=== PATIENT | male | born 1995 | race Caucasian/White ===

== ENCOUNTER → 2017-08-04 | Outpatient (CLI) | payer OTHER | LOC: M RAD 16:26 | DX: R10.31 Right lower quadrant pain (principal); R10.813 Right lower quadrant abdominal tenderness | CPT/HCPCS: 72192 ==

== ENCOUNTER 2018-07-02 21:27 | Emergency (ER) | payer OTHER ==
[~2018-07-02] VITALS: Ht 177.8 cm; Wt 95.5 kg
[2018-07-02] MEDS ORDERED: BUPR300T34 PO (21:33)
[2018-07-02 21:53] LABS: BASO # 0.1 10^3/uL (0.0-0.2); BASO % 0.6 % (0.0-1.0); EOS # 0.4 10^3/uL (0.0-0.50); EOS % 4.2 % (0.0-3.0); LYMPH # 4.4 10^3/uL (1.5-6.5); LYMPH % 41.6 % (24.0-44.0); MEAN CORPUSCULAR HEMOGLOBIN 29.4 pg (27.0-33.0); MEAN CORPUSCULAR VOLUME 86.2 fl (80.0-96.0); MONO # 0.7 10^3/uL (0.0-0.8); MONO % 6.2 % (0.0-5.0); NEUTROPHILS % 47.1 % (36.0-66.0); PLATELET COUNT, AUTOMATED 248 10^3/uL (150-450); RED BLOOD COUNT 5.45 10^6/uL (4.30-6.10); WHITE BLOOD COUNT 10.6 10^3/uL (4.0-10.0)
[2018-07-02 22:21] LABS: ALBUMIN 3.8 GM/DL (3.2-5.2); ALT/SGPT 31 U/L (12-78); BILIRUBIN,DIRECT < 0.1 MG/DL (0.0-0.2); BILIRUBIN,TOTAL 0.3 MG/DL (0.2-1.0); BLOOD UREA NITROGEN 14 MG/DL (7-18); CALCIUM LEVEL 9.3 MG/DL (8.5-10.1); CARBON DIOXIDE LEVEL 30 MEQ/L (21-32); CHLORIDE LEVEL 104 MEQ/L (98-107); CREATININE FOR GFR 1.21 MG/DL (0.70-1.30); GLOMERULAR FILTRATION RATE > 60.0 (>60); GLUCOSE, FASTING 101 MG/DL (70-100); LIPASE 144 U/L (73-393); POTASSIUM SERUM 4.2 MEQ/L (3.5-5.1); SODIUM LEVEL 143 MEQ/L (136-145); TOTAL PROTEIN 7.8 GM/DL (6.4-8.2)
[2018-07-02] MEDS ORDERED: NS 1,000 ML IV ONE (23:00)
[2018-07-02] MEDS ORDERED: ISOVUE-370 76% 100ML VIAL (Q9967) As Ordered ONE (23:00)
--- NOTE | 2018-07-03 01:08 | REPVR ---
EXAM: CT Abdomen and Pelvis With Contrast EXAM DATE/TIME: 07/02/2018 11:55 PM CLINICAL HISTORY: 22 years old, male; Abdominal pain; Localized; Left lower quadrant (llq); Additional info: Llq pain, diarrhea TECHNIQUE: Imaging protocol: Axial computed tomography images of the abdomen and pelvis with intravenous contrast. Coronal and sagittal reformatted images were created and reviewed. Radiation optimization: All CT scans at this facility use at least one of these dose optimization techniques: automated exposure control; mA and/or kV adjustment per patient size (includes targeted exams where dose is matched to clinical indication); or iterative reconstruction. Contrast material: ISOVUE 370; Contrast volume: 100 ml; Contrast route: IV; COMPARISON: CT Pelvis without contrast 08/04/2017 4:37 PM FINDINGS: Lungs: Mild linear stranding and groundglass at the lung bases, likely due to atelectasis. ABDOMEN: Liver: Unremarkable. Gallbladder and bile ducts: No radiodense gallstones. No biliary ductal dilatation. Pancreas: Unremarkable. Spleen: Unremarkable. Adrenals: Unremarkable. Kidneys and ureters: No mass. No radiodense calculi. No hydronephrosis. Stomach and bowel: No bowel wall thickening. No obstruction. No pneumatosis. Appendix: Normal. PELVIS: Bladder: Unremarkable. Reproductive: Unremarkable. ABDOMEN and PELVIS: Intraperitoneal space: No free fluid. No organized fluid collection. No free air. Bones/joints: No acute osseous abnormality. Soft tissues: Small, fat-containing umbilical hernia. Vasculature: Unremarkable. No aneurysm. Lymph nodes: No pathologically enlarged lymph nodes. IMPRESSION: 1. No CT evidence of acute intra-abdominal or pelvic pathology. 2. Additional findings, as above. Electronically signed by: Jeff Stout On 07/03/2018 01:07:54 AM
[2018-07-03 01:40] VITALS: BP 126/58
== END 2018-07-03 02:04 | disposition home or self-care (01) ==
LOC: M ED 21:27
DX: K42.9 Umbilical hernia without obstruction or gangrene (principal); R19.7 Diarrhea, unspecified
CPT/HCPCS: 36415; 74177; 80048; 80076; 81001; 83690; 85025; 96360; 96361; 99284; Q9967

== ENCOUNTER → 2018-07-03 | Outpatient (REF) | payer OTHER ==
[~2018-07-03] MED LIST: BUPR300T34 PO
== END ==
LOC: M LAB REF 09:26
PROVIDERS: ATTEND Internal Medicine
DX: R19.7 Diarrhea, unspecified (principal)

== ENCOUNTER 2018-08-27 20:16 | Emergency (ER) | payer OTHER ==
[~2018-08-27] VITALS: Ht 182.9 cm; Wt 99.5 kg
[2018-08-27] MEDS ORDERED: BUPR15TA (20:24)
[2018-08-27] MEDS ORDERED: ACET1TAB55 (20:24)
[2018-08-27] MEDS ORDERED: HYDR-3713 (20:24)
[2018-08-27] MEDS ORDERED: KETOROLAC TROMETHAMINE 10 MG TAB PO ONE (23:30)
[2018-08-27 23:51] VITALS: BP 131/79
[2018-08-27] MEDS ORDERED: KETO10TAB PO (23:51)
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
== END 2018-08-27 23:55 | disposition home or self-care (01) ==
LOC: M ED 20:16
DX: S40.012A Contusion of left shoulder, initial encounter (principal); S20.211A Contusion of right front wall of thorax, initial encounter; V29.9XXA Motorcycle rider (driver) (passenger) injured in unspecified traffic accident, initial encounter; Y92.9 Unspecified place or not applicable; Y93.89 Activity, other specified; Y99.9 Unspecified external cause status; Z79.899 Other long term (current) drug therapy

== ENCOUNTER 2019-09-03 19:15 | Emergency (ER) | payer OTHER ==
[~2019-09-03] VITALS: Ht 172.7 cm; Wt 97.7 kg
[~2019-09-03 19:15] MED LIST changes: +ACET1TAB55; +BUPR15TA; -BUPR300T34 PO; +BUPR300T92 PO; +HYDR-3713; +KETO10TAB PO
[2019-09-03] MEDS ORDERED: AMPH1CAP5 (19:22)
[2019-09-03] MEDS ORDERED: VENL75CA47 (19:22)
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
[2019-09-03 22:05] VITALS: BP 123/82
[2019-09-03 22:58] LABS: CHLAMYDIA DNA AMPLIFICATION NEGATIVE (NEGATIVE); GC DNA AMPLIFICATION NEGATIVE (NEGATIVE)
== END 2019-09-03 22:07 | disposition home or self-care (01) ==
LOC: M ED 19:15
DX: N50.9 Disorder of male genital organs, unspecified (principal)

== ENCOUNTER 2019-12-22 15:51 | Emergency (ER) | payer OTHER ==
[~2019-12-22] VITALS: Ht 172.7 cm; Wt 98.4 kg
[~2019-12-22 15:51] MED LIST changes: +AMPH1CAP5; +VENL75CA47
[2019-12-22 15:52] VITALS: BP 137/74
[2019-12-22] MEDS ORDERED: MELA3TAB30 (16:02)
[2019-12-22] MEDS ORDERED: CLOT1CRE56 (16:02)
[2019-12-22] MEDS ORDERED: METH27TA5 (16:02)
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
== END 2019-12-22 19:25 | disposition left against medical advice (07) ==
LOC: M ED 15:51
DX: S90.121A Contusion of right lesser toe(s) without damage to nail, initial encounter (principal); S90.122A Contusion of left lesser toe(s) without damage to nail, initial encounter; X50.3XXA Overexertion from repetitive movements, initial encounter; Y92.410 Unspecified street and highway as the place of occurrence of the external cause; Y93.01 Activity, walking, marching and hiking; Z53.20 Procedure and treatment not carried out because of patient's decision for unspecified reasons

== ENCOUNTER → 2020-03-21 | Outpatient (CLI) | payer OTHER ==
[~2020-03-21] MED LIST changes: +CLOT1CRE56; +MELA3TAB30; +METH27TA5
--- NOTE | 2020-03-25 15:42 | SLEEPCENT ---
NOCTURNAL POLYSOMNOGRAPHY DATE: 03/21/2020 ORDERED BY: YOLANDA Thompson Nocturnal polysomnography was performed for evaluation of sleep physiology in this patient with a history of excessive somnolence and nonrestorative sleep. 7 hours and 38 minutes of data were reviewed. There were 377.5 minutes of sleep identified. Sleep latency was prolonged at 47.5 minutes. REM latency was mildly prolonged at 129 minutes. Sleep architecture once established was good. There were two REM cycles noted. Overall sleep efficiency was 83.5%. The electrocardiogram showed a sinus rhythm with an average heart rate of 82 beats per minute; rate range 60 to 90. EEG showed some mild coarsening in the back background. No focal events were appreciated. There were normal waveforms for wake and sleep stages. There were only 8 obstructive respiratory events identified of 10 seconds in duration or greater for an apnea-hypopnea index within normal limits at 1.3. Snoring was, however, noted throughout the later portions of the study. Arousals from respiratory events occurred 0.6 times per hour, and there were no significant oxygen desaturations below 90%. There was some minor limb activity, but no trains of events were seen. IMPRESSION: Normal nocturnal polysomnography with snoring.
== END ==
LOC: M SLEEP 20:00
PROVIDERS: ATTEND Nurse Practitioner Family
DX: R06.83 Snoring (principal)

== ENCOUNTER 2020-05-06 00:36 | Emergency (ER) | payer OTHER ==
[~2020-05-06] VITALS: Ht 180.3 cm; Wt 102.3 kg
[2020-05-06] MEDS ORDERED: ONDANSETRON 4MG/2ML VIAL IV ONE (00:45)
[2020-05-06 00:51] LABS: HEMATOCRIT 46.7 % (42.0-52.0); HEMOGLOBIN 15.3 g/dl (13.5-17.5); MEAN CORPUSCULAR HEMOGLOBIN 30.2 pg (27.0-33.0); MEAN CORPUSCULAR HGB CONC 32.8 g/dl (32.0-36.5); MEAN CORPUSCULAR VOLUME 92.3 fl (80.0-96.0); PLATELET COUNT, AUTOMATED 304 10^3/uL (150-450); RED BLOOD COUNT 5.06 10^6/uL (4.30-6.10); WHITE BLOOD COUNT 11.7 10^3/uL (4.0-10.0)
[2020-05-06] MEDS ORDERED: ISOVUE-370 76% 100ML VIAL As Ordered ONE (00:54)
[2020-05-06 01:09] LABS: ATYPICAL LYMPH 4 % (0-5); BASOPHILS 2 % (0-1); EOSINOPHILS 3 % (0-3); LYMPHOCYTES 47 % (16-44); MONOCYTES 3 % (0-5); NEUTROPHILS 41 % (28-66); PLATELET ESTIMATE NORMAL (NORMAL)
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
[2020-05-06 01:28] LABS: ALT/SGPT 44 U/L (12-78); AMYLASE 94 U/L (25-115); BILIRUBIN,DIRECT < 0.1 MG/DL (0.0-0.2); BILIRUBIN,TOTAL 0.3 MG/DL (0.2-1.0); BLOOD UREA NITROGEN 9 MG/DL (7-18); CALCIUM LEVEL 9.7 MG/DL (8.5-10.1); CARBON DIOXIDE LEVEL 28 MEQ/L (21-32); CHLORIDE LEVEL 109 MEQ/L (98-107); CK-MB VALUE MASS 2.2 NG/ML (<3.6); CPK CREATINE PHOSPHOKINASE 351 U/L (39-308); CREATININE FOR GFR 0.84 MG/DL (0.70-1.30); ETHYL ALCOHOL (ETHANOL) 0.242 % (0.000-0.010); GLOMERULAR FILTRATION RATE > 60.0 (>60); GLUCOSE, FASTING 107 MG/DL (70-100); LIPASE 113 U/L (73-393); MB/CK RELATIVE INDEX 0.63 (< OR =4); POTASSIUM SERUM 3.8 MEQ/L (3.5-5.1); SODIUM LEVEL 144 MEQ/L (136-145); TOTAL PROTEIN 7.9 GM/DL (6.4-8.2); TROPONIN I < 0.02 NG/ML (< 0.10)
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
[2020-05-06 03:00] VITALS: BP 128/73
[2020-05-06 03:25] LABS: AMPHETAMINES LEVEL URINE POSITIVE (NEGATIVE); BARBITURATES URINE NEGATIVE (NEGATIVE); BENZODIAZEPINES URINE NEGATIVE (NEGATIVE); CANNABINOIDS URINE NEGATIVE (NEGATIVE); COCAINE METABOLITE URINE NEGATIVE (NEGATIVE); METHADONE URINE NEGATIVE (NEGATIVE); OPIATES URINE NEGATIVE (NEGATIVE); PHENCYCLIDINE URINE NEGATIVE (NEGATIVE)
== END 2020-05-06 03:22 | disposition home or self-care (01) ==
LOC: M ED 00:36
DX: F10.129 Alcohol abuse with intoxication, unspecified (principal); V48.5XXA Car driver injured in noncollision transport accident in traffic accident, initial encounter; Y92.9 Unspecified place or not applicable; Y93.9 Activity, unspecified; Y99.9 Unspecified external cause status; Z97.4 Presence of external hearing-aid; F17.200 Nicotine dependence, unspecified, uncomplicated; R93.7 Abnormal findings on diagnostic imaging of other parts of musculoskeletal system; Z79.899 Other long term (current) drug therapy
CPT/HCPCS: 70450; 71045; 71260; 72125; 74177; 80048; 80076; 80307; 81001; 82077; 82150; 82550; 82553; 83605; 83690; 84484; 85025; 85730; 86850; 86900; 86901; 93041; 94760; 96374; 99285; J2405; Q9967

== ENCOUNTER 2020-05-22 08:40 | Day surgery (SDC) | payer OTHER ==
[~2020-05-22] VITALS: Ht 177.8 cm; Wt 102.6 kg
[~2020-05-22 08:40] MED LIST changes: +ADDE30CA3 PO; +LR 1,000 ML IV ONE
[2020-05-22] MEDS ORDERED: LIDOCAINE 2% 100MG/5ML SDV (FOR ANES.) As Ordered ONE (10:15)
[2020-05-22] MEDS ORDERED: ONDANSETRON 4MG/2ML VIAL As Ordered ONE (10:15)
[2020-05-22] MEDS ORDERED: propofoL 200 MG/20 ML VIAL As Ordered ONE (10:15)
[2020-05-22] MEDS ORDERED: ROCURONIUM BROMIDE 50 MG/5 ML VIAL As Ordered ONE (10:15)
[2020-05-22] MEDS ORDERED: dexameTHASONE 4 MG/ML 1ML VIAL (J1100 PER 1MG) As Ordered ONE (10:15)
[2020-05-22] MEDS ORDERED: MIDAZOLAM INJ 2MG/2ML VIAL (J2250 PER 1MG) As Ordered ONE (10:16)
[2020-05-22] MEDS ORDERED: fentaNYL 250 MCG/5 ML INJECTION (J3010) As Ordered ONE (10:16)
[2020-05-22] MEDS ORDERED: LIDOCAINE W/EPINEPHRINE 1% 20ML VIAL As Ordered ONE (11:09)
[2020-05-22] MEDS ORDERED: BUPIVACAINE/EPIN 0.5% 30 ML VIAL As Ordered ONE (11:10)
[2020-05-22] MEDS ORDERED: KETAMINE HCL 200 MG/20 ML VIAL As Ordered ONE (11:44)
[2020-05-22] MEDS ORDERED: ACETAMINOPHEN 1000MG 100ML IV BTL (OFIRMEV) (J0131 PER 10MG) As Ordered ONE (11:49)
[2020-05-22] MEDS ORDERED: SUGAMMADEX SODIUM 500 MG/5 ML VIAL (BRIDION) As Ordered ONE (11:49)
[2020-05-22] MEDS ORDERED: ONDANSETRON 4MG/2ML VIAL IV PRN (12:40)
[2020-05-22] MEDS ORDERED: MEPERIDINE INJ 25 MG/ML VIAL (J2175) IV PRN (12:40)
[2020-05-22] MEDS ORDERED: fentaNYL 100 MCG/2 ML INJECTION (J3010) IV PRN (12:40)
[2020-05-22] MEDS ORDERED: LR 1,000 ML IV SCH ×2 (12:40→12:45)
[2020-05-22] MEDS ORDERED: METOCLOPRAMIDE INJ 10MG/2ML VIAL (J2765 PER 1) IV PRN (12:40)
[2020-05-22] MEDS ORDERED: NORCO, ANEXSIA 5/325MG TABLET (HYDROcodone/ACETAMINOPHEN) PO PRN (12:45)
[2020-05-22] MEDS: oxyCODONE 5MG TAB PO PRN ×2 (12:49→13:32)
[2020-05-22 14:04] VITALS: BP 143/80
--- NOTE | 2020-05-22 14:48 | RO ---
OPERATIVE NOTE DATE OF OPERATION: 05/22/2020 PREOPERATIVE DIAGNOSES: 1. Chronic tonsillitis. 2. Elongated uvula. POSTOPERATIVE DIAGNOSES: 1. Chronic tonsillitis. 2. Elongated uvula. PROCEDURE: 1. Uvulectomy. 2. Tonsillectomy. DESCRIPTION OF PROCEDURE: Under general anesthesia with the patient intubated, Maynard-Riley mouth gag was inserted. I infiltrated the tonsil area with lidocaine with epinephrine and Marcaine. I used cautery to trim the 1 cm inferior aspect of the uvula. I then made an incision anteriorly on the left side of the left tonsil and dissected down to the tonsil. I used cautery to dissect the tonsil free from its bed. Areas where there were vessels were cauterized. There was no bleeding. This same procedure was performed on both sides. Patient tolerated the procedure well. No blood loss. Patient extubated and transferred to the recovery room in excellent condition.
== END 2020-05-22 14:37 | disposition home or self-care (01) ==
LOC: M SDC 08:40
PROVIDERS: ATTEND Otolaryngology
DX: J35.01 Chronic tonsillitis (principal); J39.8 Other specified diseases of upper respiratory tract; G43.909 Migraine, unspecified, not intractable, without status migrainosus; F43.10 Post-traumatic stress disorder, unspecified; F90.9 Attention-deficit hyperactivity disorder, unspecified type; F41.9 Anxiety disorder, unspecified; F32.9 Major depressive disorder, single episode, unspecified; Z79.899 Other long term (current) drug therapy
CPT/HCPCS: 42140; 42826; 88302; 88305; J0131; J1100; J2250; J2405; J3010

== ENCOUNTER 2020-05-27 15:28 | Emergency (ER) | payer OTHER ==
[~2020-05-27] VITALS: Ht 172.7 cm; Wt 104.0 kg
[~2020-05-27 15:28] MED LIST changes: -LR 1,000 ML IV ONE
[2020-05-27] MEDS ORDERED: AIMO70IN2 (15:56)
[2020-05-27] MEDS ORDERED: HYDR-4571 (15:56)
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
[2020-05-27 17:26] LABS: INR 1.04; PROTHROMBIN TIME 13.8 SECONDS (12.5-14.3)
[2020-05-27 17:38] LABS: ALBUMIN 3.6 GM/DL (3.2-5.2); ALT/SGPT 57 U/L (12-78); BILIRUBIN,DIRECT 0.1 MG/DL (0.0-0.2); BILIRUBIN,TOTAL 0.3 MG/DL (0.2-1.0); BLOOD UREA NITROGEN 10 MG/DL (7-18); CALCIUM LEVEL 9.3 MG/DL (8.5-10.1); CARBON DIOXIDE LEVEL 30 MEQ/L (21-32); CHLORIDE LEVEL 103 MEQ/L (98-107); CK-MB VALUE MASS < 1.0 NG/ML (<3.6); CPK CREATINE PHOSPHOKINASE 67 U/L (39-308); CREATININE FOR GFR 0.94 MG/DL (0.70-1.30); GLOMERULAR FILTRATION RATE > 60.0 (>60); GLUCOSE, FASTING 115 MG/DL (70-100); MB/CK RELATIVE INDEX 1.49 (< OR =4); POTASSIUM SERUM 3.5 MEQ/L (3.5-5.1); SODIUM LEVEL 137 MEQ/L (136-145); THYROXINE (T4) 3.3 UG/DL (4.5-12.0); TOTAL PROTEIN 7.6 GM/DL (6.4-8.2); TROPONIN I < 0.02 NG/ML (< 0.10)
[2020-05-27 21:16] LABS: BASO % 0.5 % (0.0-1.0); EOS # 0.3 10^3/uL (0.0-0.5); EOS % 2.8 % (0.0-3.0); HEMATOCRIT 43.7 % (42.0-52.0); HEMOGLOBIN 14.2 g/dl (13.5-17.5); LYMPH # 2.3 10^3/uL (1.5-5.0); LYMPH % 25.8 % (24.0-44.0); MEAN CORPUSCULAR HEMOGLOBIN 30.4 pg (27.0-33.0); MEAN CORPUSCULAR HGB CONC 32.5 g/dl (32.0-36.5); MEAN CORPUSCULAR VOLUME 93.6 fl (80.0-96.0); MONO # 0.5 10^3/uL (0.0-0.8); MONO % 5.3 % (2.0-8.0); NEUTROPHILS # 5.8 10^3/uL (1.5-8.5); NEUTROPHILS % 65.1 % (36.0-66.0); PLATELET COUNT, AUTOMATED 317 10^3/uL (150-450); RED BLOOD COUNT 4.67 10^6/uL (4.30-6.10); WHITE BLOOD COUNT 8.8 10^3/uL (4.0-10.0)
[2020-05-27] MEDS ORDERED: NS 1,000 ML IV ONE (21:20)
[2020-05-27] MEDS ORDERED: KETOROLAC 30 MG/ML 1ML VIAL IV ONE (21:20)
[2020-05-27 21:36] LABS: D-DIMER QUANT 371.15 ng/ml (<500)
[2020-05-27] MEDS ORDERED: DOXY100C37 PO (22:01)
[2020-05-27] MEDS ORDERED: KETO10TAB PO (22:13)
[2020-05-27] MEDS ORDERED: DOXYCYCLINE HYCLATE 100MG TABLET PO ONE (22:15)
[2020-05-27 23:13] VITALS: BP 138/71
--- NOTE | 2020-05-28 02:45 | ECGEPIP ---
[facility] - ED Test Date: 2020-05-27 Pat Name: GENE NÚÑEZ Department: Room: - Gender: Male [employer]isher: nivia : 1995 Requested By: PEACE Cartagena Order Number: [id number] Reading MD: Rishi Keane Measurements Intervals [place] Rate: 84 P: 54 NE: 164 QRS: -3 QRSD: 88 T: 51 QT: 360 QTc: 425 Interpretive Statements Normal sinus rhythm Minimal voltage criteria for LVH, may be normal variant ( R in aVL ) Nonspecific T wave abnormality NO PRIORS FOR COMPARISON Electronically Signed on 05-28-2020 2:44:59 EDT by Rishi Keane
== END 2020-05-27 23:15 | disposition home or self-care (01) ==
LOC: M ED 15:28
DX: J18.9 Pneumonia, unspecified organism (principal); F43.21 Adjustment disorder with depressed mood; F90.9 Attention-deficit hyperactivity disorder, unspecified type; Z86.14 Personal history of Methicillin resistant Staphylococcus aureus infection
CPT/HCPCS: 71046; 80048; 80076; 82550; 82553; 84436; 84443; 84484; 85025; 85379; 85610; 93005; 96361; 96374; 99284; J1885

== ENCOUNTER 2020-10-01 17:20 | Emergency (ER) | payer OTHER ==
[~2020-10-01] VITALS: Ht 175.3 cm; Wt 100.0 kg
[~2020-10-01 17:20] MED LIST changes: +AIMO70IN2; +DOXY1CAP62 PO; +HYDR-4571
[2020-10-01] MEDS ORDERED: GABA600T4 (17:39)
[2020-10-01] MEDS ORDERED: NALT50TA4 (17:39)
[2020-10-01] MEDS ORDERED: MELA3TAB30 (17:39)
[2020-10-01] MEDS ORDERED: VENL37.598 (17:39)
[2020-10-01] MEDS ORDERED: VENL150C43 (17:39)
[2020-10-01] MEDS ORDERED: METOCLOPRAMIDE INJ 10MG/2ML VIAL (J2765 PER 1) IV ONE (21:05)
[2020-10-01] MEDS ORDERED: NS 1,000 ML IV ONE (21:05)
[2020-10-01] MEDS ORDERED: KETOROLAC 30 MG/ML 1ML VIAL IV ONE (21:05)
[2020-10-01 21:12] LABS: RSV AMPLIFICATION NEGATIVE (NEGATIVE)
[2020-10-01 21:33] LABS: BASO # 0.1 10^3/uL (0.0-0.2); BASO % 0.7 % (0.0-1.0); EOS # 0.3 10^3/uL (0.0-0.5); EOS % 3.5 % (0.0-3.0); HEMATOCRIT 47.7 % (42.0-52.0); HEMOGLOBIN 16.1 g/dl (13.5-17.5); LYMPH # 3.3 10^3/uL (1.5-5.0); LYMPH % 33.3 % (24.0-44.0); MEAN CORPUSCULAR HGB CONC 33.8 g/dl (32.0-36.5); MONO # 0.7 10^3/uL (0.0-0.8); MONO % 7.3 % (2.0-8.0); NEUTROPHILS # 5.4 10^3/uL (1.5-8.5); NEUTROPHILS % 54.8 % (36.0-66.0); PLATELET COUNT, AUTOMATED 244 10^3/uL (150-450); RED BLOOD COUNT 5.36 10^6/uL (4.30-6.10); WHITE BLOOD COUNT 9.8 10^3/uL (4.0-10.0)
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
[2020-10-01 22:45] VITALS: BP 123/68
[2020-10-01] MEDS ORDERED: ONDA4TAB6 PO (22:52)
== END 2020-10-01 23:02 | disposition home or self-care (01) ==
LOC: M ED 17:20
DX: R53.83 Other fatigue (principal); R11.2 Nausea with vomiting, unspecified; R51.9 Headache, unspecified; M79.18 Myalgia, other site
CPT/HCPCS: 71045; 80047; 81001; 85025; 87631; 96361; 96374; 99284; J1885; J2765

== ENCOUNTER 2021-05-19 05:17 | Emergency (ER) | payer BC, OTHER ==
[~2021-05-19] VITALS: Ht 177.8 cm; Wt 104.5 kg
[~2021-05-19 05:17] MED LIST changes: +DOXY-443 PO; -DOXY1CAP62 PO; +GABA600T4; +NALT50TA4; +ONDA4TAB6 PO; +VENL150C43; +VENL37.598
[2021-05-19] MEDS ORDERED: ADDE30CA3 PO (05:30)
[2021-05-19] MEDS ORDERED: AMPH1TAB2 PO (05:30)
[2021-05-19] MEDS ORDERED: NS 1,000 ML IV ONE (07:35)
[2021-05-19 07:55] LABS: BASO % 0.5 % (0.0-1.0); EOS # 0.1 10^3/uL (0.0-0.5); EOS % 1.2 % (0.0-3.0); HEMATOCRIT 45.1 % (42.0-52.0); HEMOGLOBIN 15.3 g/dl (13.5-17.5); LYMPH # 1.9 10^3/uL (1.5-5.0); LYMPH % 28.5 % (24.0-44.0); MEAN CORPUSCULAR HEMOGLOBIN 29.8 pg (27.0-33.0); MEAN CORPUSCULAR HGB CONC 33.9 g/dl (32.0-36.5); MEAN CORPUSCULAR VOLUME 87.7 fl (80.0-96.0); MONO # 1.1 10^3/uL (0.0-0.8); MONO % 16.4 % (2.0-8.0); NEUTROPHILS # 3.5 10^3/uL (1.5-8.5); NEUTROPHILS % 53.2 % (36.0-66.0); PLATELET COUNT, AUTOMATED 205 10^3/uL (150-450); RED BLOOD COUNT 5.14 10^6/uL (4.30-6.10); WHITE BLOOD COUNT 6.6 10^3/uL (4.0-10.0)
[2021-05-19 08:19] LABS: ALBUMIN 3.4 GM/DL (3.2-5.2); ALT/SGPT 47 U/L (12-78); BILIRUBIN,DIRECT < 0.1 MG/DL (0.0-0.2); BILIRUBIN,TOTAL 0.4 MG/DL (0.2-1.0); BLOOD UREA NITROGEN 8 MG/DL (7-18); CARBON DIOXIDE LEVEL 28 MEQ/L (21-32); CHLORIDE LEVEL 108 MEQ/L (98-107); CREATININE FOR GFR 0.87 MG/DL (0.70-1.30); GLOMERULAR FILTRATION RATE > 60.0 (>60); GLUCOSE, FASTING 90 MG/DL (70-100); LIPASE 93 U/L (73-393); POTASSIUM SERUM 4.2 MEQ/L (3.5-5.1); SODIUM LEVEL 139 MEQ/L (136-145)
[2021-05-19 10:52] VITALS: BP 125/68
== END 2021-05-19 10:55 | disposition home or self-care (01) ==
LOC: M ED 05:17
DX: A08.0 Rotaviral enteritis (principal); Z79.899 Other long term (current) drug therapy